=== PATIENT | female | born 1965 | race Caucasian/White ===

== ENCOUNTER 2019-10-06 02:58 | Emergency (ER) | payer BC ==
--- NOTE | 2019-10-06 04:00 | EDM.PDOC ---
<Fransisco Lisa - Last Filed: 10/06/19 14:47> ED HPI GENERAL MEDICAL PROBLEM - General Chief Complaint: Abdominal Pain Stated Complaint: ABD PAIN Time Seen by Provider: 10/06/19 03:59 - Related Data Allergies Allergy/AdvReac Type Severity Reaction Status Date / Time codeine Allergy Nausea and Verified 10/06/19 03:20 Vomiting Home Meds: Home Meds Citalopram Hydrobromide [Celexa] 1 tab PO DAILY 10/06/19 [History] ED ROS GENERAL - Review of Systems Review Of Systems: See Below ED EXAM, GI/ABD - Physical Exam Exam: See Below Course - Vital Signs Last Recorded V/S: Last Vital Signs Temp 36.7 C 10/06/19 03:27 Pulse 70 10/06/19 03:27 Resp 18 10/06/19 03:27 BP 129/66 10/06/19 03:27 Pulse Ox 95 10/06/19 03:27 - Orders/Labs/Meds Labs: Laboratory Tests 10/06/19 10/06/19 10/06/19 Range/Units 04:15 04:25 04:25 WBC 7.8 (4.5-11.0) K/uL RBC 4.37 (3.30-5.50) M/uL Hgb 12.9 (12.0-15.0) g/dL Hct 40.8 (36.0-48.0) % MCV 93 (80-98) fL MCH 30 (27-31) pg MCHC 32 (32-36) % Plt Count 310 (150-400) K/uL Neut % (Auto) 74 H (36-66) % Lymph % (Auto) 19 L (24-44) % [place] % (Auto) 7 H (2-6) % Eos % (Auto) 1 L (2-4) % Baso % (Auto) 0 (0-1) % Sodium 139 L (140-148) mmol/L Potassium 4.1 (3.6-5.2) mmol/L Chloride 103 (100-108) mmol/L Carbon Dioxide 28 (21-32) mmol/L Anion Gap 12.1 (5.0-14.0) mmol/L BUN 12 (7-18) mg/dL Creatinine 1.0 (0.6-1.0) mg/dL Est Cr Clr Drug Dosing 60.91 mL/min Estimated GFR (MDRD) 58 L (>60) Glucose 122 H (74-106) mg/dL Lactic Acid 0.7 (0.4-2.0) mmol/L Calcium 9.5 (8.5-10.1) mg/dL Total Bilirubin 0.5 (0.2-1.0) mg/dL AST 19 (15-37) U/L ALT 45 (12-78) U/L Alkaline Phosphatase 94 (46-116) U/L C-Reactive Protein 0.72 H (0.0-0.3) mg/dL Total Protein 8.0 (6.4-8.2) g/dL Albumin 3.7 (3.4-5.0) g/dL Globulin 4.3 H (2.3-3.5) g/dL Albumin/Globulin Ratio 0.9 L (1.2-2.2) Lipase 64 L (73-393) U/L Meds: Medications Discontinued Medications Generic Name Dose Route Start Last Admin Trade Name Josephq PRN Reason Stop Dose Admin Sodium Chloride 83 mls @ 3.5 mls/sec 10/06/19 04:17 10/06/19 04:26 Normal Saline IV 10/06/19 04:18 3.5 mls/sec ASDIRECTED STA Administration Sodium Chloride 1,000 mls @ 999 mls/hr 10/06/19 04:45 10/06/19 04:45 Normal Saline IV 10/06/19 05:46 999 mls/hr ASDIRECTED WADE Administration Sodium Chloride 1,000 mls @ 250 mls/hr 10/06/19 05:45 10/06/19 05:50 Normal Saline IV 250 mls/hr ASDIRECTED WADE Administration Iopamidol 200 ml 10/06/19 04:30 10/06/19 04:26 Isovue-300 (61%) IV 200 ml ASDIRECTED WADE Administration Morphine Sulfate 4 mg 10/06/19 04:09 10/06/19 04:39 Morphine IVPUSH 10/06/19 04:10 4 mg ONETIME ONE Administration Ondansetron HCl 4 mg 10/06/19 04:08 10/06/19 04:37 Zofran IVPUSH 10/06/19 04:09 4 mg ONETIME ONE Administration - Re-Assessments/Exams Free Text/Narrative Re-Assessment/Exam: 10/06/19 08:43 Patient care turned over from Dr. Meade pending fluid administration and labs. Her CT of the abdomen was negative, labs were reassuring and she slept soundly for 4 hours while getting fluids. She felt much better when she awoke and was willing to try to go home. She can return if worsening. Departure - Departure Time of Disposition: 09:03 Disposition: Home, Self-Care 01 Clinical Impression: Gastroenteritis - Discharge Information Instructions: Viral Gastroenteritis, Adult, [id number] Referrals: PCP,None [Primary Care Provider] - Forms: ED Department Discharge Care Plan Goals: Advance diet and activity as tolerated, initially concentrating on fluids. Consider rechecking in 2 to 3 days if not improving satisfactorily, or return anytime if worsening such as fever, pain, or persistent vomiting. <Cisco Meade - Last Filed: 10/07/19 19:23> ED HPI GENERAL MEDICAL PROBLEM - General Source of Information: Reports: Patient History Limitations: Reports: No Limitations - History of Present Illness INITIAL COMMENTS - FREE TEXT/NARRATIVE: 54 years old female patient presented with chief complaint of lower abdominal pain, cramping, has been going on for 3 days, constant, no radiation, nothing makes it better or worse. Associated with nausea and dry heaving. Diarrhea 2 days ago, currently resolved. Denies any fever. Denies any cough. Denies any chest pain or shortness breath. Denies any urinary symptom. No recent antibiotic use. No suspicious food. No sick contacts. Lower Abdomen Pain Score (Numeric/FACES): 8 Past Medical History [employer] History: Reports: Musculoskeletal History: Reports: Fracture Other Musculoskeletal History: toe fx Psychiatric History: Reports: Anxiety - Infectious Disease History Infectious Disease History: Reports: Chicken Pox - Past Surgical History GI Surgical History: Reports: Cholecystectomy Social & Family History - Tobacco Use Smoking Status *Q: Never Smoker Second Hand Smoke Exposure: No - Caffeine Use Caffeine Use: Reports: Coffee - Alcohol Use Days Per Week of Alcohol Use: 0 - Recreational Drug Use Recreational Drug Use: No ED ROS GENERAL - Review of Systems Review Of Systems: Comprehensive ROS is negative, except as noted in HPI. ED EXAM, GI/ABD - Physical Exam Exam: See Below Exam Limited By: No Limitations General Appearance: Alert, WD/WN, No Apparent Distress Nose: Normal Inspection, Normal Mucosa, No Blood Throat/Mouth: Normal Inspection, Normal Lips, Normal Teeth, Normal Gums, Normal Oropharynx, Normal Voice, No Airway Compromise Head: Atraumatic, Normocephalic Neck: Normal Inspection, Supple, Non-Tender, Full Range of Motion Respiratory/Chest: No Respiratory Distress, Lungs Clear, Normal Breath Sounds, No Accessory Muscle Use, Chest Non-Tender Cardiovascular: Normal Peripheral Pulses, Regular Rate, Rhythm, No Edema, No Gallop, No JVD, No Murmur, No Rub GI/Abdominal Exam: Normal Bowel Sounds, Soft, No Organomegaly, No Distention, No Abnormal Bruit, No Mass, Pelvis Stable, Tender, Other (Lower abdominal tenderness, no guarding no rebound). No: Guarding, Rigid, Rebound Extremities: Normal Inspection, Normal Range of Motion, Non-Tender, Normal Capillary Refill, No Pedal Edema Course - Orders/Labs/Meds Labs: Laboratory Tests 10/06/19 10/06/19 10/06/19 Range/Units 04:15 04:25 04:25 WBC 7.8 (4.5-11.0) K/uL RBC 4.37 (3.30-5.50) M/uL Hgb 12.9 (12.0-15.0) g/dL Hct 40.8 (36.0-48.0) % MCV 93 (80-98) fL MCH 30 (27-31) pg MCHC 32 (32-36) % Plt Count 310 (150-400) K/uL Neut % (Auto) 74 H (36-66) % Lymph % (Auto) 19 L (24-44) % [place] % (Auto) 7 H (2-6) % Eos % (Auto) 1 L (2-4) % Baso % (Auto) 0 (0-1) % Sodium 139 L (140-148) mmol/L Potassium 4.1 (3.6-5.2) mmol/L Chloride 103 (100-108) mmol/L Carbon Dioxide 28 (21-32) mmol/L Anion Gap 12.1 (5.0-14.0) mmol/L BUN 12 (7-18) mg/dL Creatinine 1.0 (0.6-1.0) mg/dL Est Cr Clr Drug Dosing 60.91 mL/min Estimated GFR (MDRD) 58 L (>60) Glucose 122 H (74-106) mg/dL Lactic Acid 0.7 (0.4-2.0) mmol/L Calcium 9.5 (8.5-10.1) mg/dL Total Bilirubin 0.5 (0.2-1.0) mg/dL AST 19 (15-37) U/L ALT 45 (12-78) U/L Alkaline Phosphatase 94 (46-116) U/L C-Reactive Protein 0.72 H (0.0-0.3) mg/dL Total Protein 8.0 (6.4-8.2) g/dL Albumin 3.7 (3.4-5.0) g/dL Globulin 4.3 H (2.3-3.5) g/dL Albumin/Globulin Ratio 0.9 L (1.2-2.2) Lipase 64 L (73-393) U/L Meds: Medications Discontinued Medications Generic Name Dose Route Start Last Admin Trade Name Freq PRN Reason Stop Dose Admin Sodium Chloride 83 mls @ 3.5 mls/sec 10/06/19 04:17 10/06/19 04:26 Normal Saline IV 10/06/19 04:18 3.5 mls/sec ASDIRECTED STA Administration Sodium Chloride 1,000 mls @ 999 mls/hr 10/06/19 04:45 10/06/19 04:45 Normal Saline IV 10/06/19 05:46 999 mls/hr ASDIRECTED WADE Administration Sodium Chloride 1,000 mls @ 250 mls/hr 10/06/19 05:45 10/06/19 05:50 Normal Saline IV 250 mls/hr ASDIRECTED WADE Administration Iopamidol 200 ml 10/06/19 04:30 10/06/19 04:26 Isovue-300 (61%) IV 200 ml ASDIRECTED WADE Administration Morphine Sulfate 4 mg 10/06/19 04:09 10/06/19 04:39 Morphine IVPUSH 10/06/19 04:10 4 mg ONETIME ONE Administration Ondansetron HCl 4 mg 10/06/19 04:08 10/06/19 04:37 Zofran IVPUSH 10/06/19 04:09 4 mg ONETIME ONE Administration - Radiology Interpretation Free Text/Narrative:: Patient was seen and examined shortly after arrival. Stable. Given 1 L normal saline bolus, 4 mg IV Zofran and 4 mg IV morphine. Lab and imaging has been ordered. Still pending. Patient care transferred to Dr. Bain at time of shift exchange in a stable condition pending lab and imaging results.
[2019-10-06] MEDS ORDERED: Ondansetron 4 MG/2 ML SDV IVPUSH ONE (04:08)
[2019-10-06] MEDS ORDERED: Morphine 4 MG/ML Syringe IVPUSH ONE (04:09)
[2019-10-06] MEDS ORDERED: Sodium Chloride 0.9% 1,000 ML IV SCH ×3 (04:15→05:45)
[2019-10-06] MEDS ORDERED: Iopamidol 612 MG/ML 200 ML Bottle IV SCH (04:30)
--- NOTE | 2019-10-06 04:50 | CRLCT ---
INDICATION: Abdominal pain TECHNIQUE: CT abdomen and pelvis acquired with 140 cc Isovue 300 IV contrast. COMPARISON: None FINDINGS: Lower chest: Unremarkable. Liver: Unremarkable. Spleen: Unremarkable. Pancreas: Unremarkable. Gallbladder and bile ducts: S/p cholecystectomy. Adrenal glands: Unremarkable. Kidneys: Unremarkable. GI tract: Unremarkable. Appendix is normal. Vascular structures: Unremarkable. Lymph nodes: Unremarkable. Miscellaneous: Small fat containing umbilical hernia. No free air or significant free fluid. Pelvic Organs: Unremarkable. Bones: Unremarkable for age. IMPRESSION: No acute intra-abdominal process identified. Status post cholecystectomy. Please note that all CT scans at this facility use dose modulation, iterative reconstruction, and/or weight-based dosing when appropriate to reduce radiation dose to as low as reasonably achievable. Dictated by Bee Gutiérrez MD @ Oct 06 2019 4:44AM Signed by Dr. Bee Gutiérrez @ Oct 06 2019 4:49AM
== END 2019-10-06 09:03 | disposition home or self-care (01) ==
LOC: JP.ED 02:58
DX: K52.9 Noninfective gastroenteritis and colitis, unspecified (principal); Z88.5 Allergy status to narcotic agent
CPT/HCPCS: 36415; 74177; 80053; 83605; 83690; 85025; 86140; 96361; 96374; 96375; 99284; J2270; J2405; J7030; Q9967; J7050

== ENCOUNTER 2023-03-10 06:39 | Day surgery (SDC) | payer BC ==
[2023-03-10] MEDS ORDERED: Sodium Chloride 0.9% 1,000 ML IV SCH (07:00)
[2023-03-10] MEDS ORDERED: Midazolam 1 MG/ML 2 ML SDV ONE (07:11)
[2023-03-10] MEDS ORDERED: Propofol 200 MG/20 ML SDV ONE (07:11)
[2023-03-10] MEDS ORDERED: fentaNYL 50 MCG/ML SDV ONE (07:11)
== END 2023-03-10 09:48 | disposition home or self-care (01) ==
LOC: JP.SDS 06:39
PROVIDERS: ATTEND Surgery
DX: K63.5 Polyp of colon (principal); F41.9 Anxiety disorder, unspecified; F32.A Depression, unspecified; E66.9 Obesity, unspecified; Z68.33 Body mass index [BMI] 33.0-33.9, adult
CPT/HCPCS: 45380; 88305; J2250; J2704; J3010; J7030